=== PATIENT | male | born 1995 | race Caucasian/White ===

== ENCOUNTER 2024-04-20 13:53 | Emergency (ER) | payer OTHER ==
[~2024-04-20] VITALS: Ht 175.3 cm; Wt 82.0 kg
[2024-04-20 13:56] VITALS: O2SAT 96
[2024-04-20 14:03] VITALS: TEMP 36.7; O2SAT 98
[2024-04-20 14:27] LABS: CHLORIDE 101 mEq/L (98-107); POTASSIUM 3.7 mEq/L (3.5-5.1); SODIUM 140 mEq/L (136-145)
[2024-04-20 14:28] LABS: BASOPHILS % 0.8 % (0.0-2.0); DIFFERENTIAL COMMENT 0; HEMATOCRIT. 47.9 % (42.0-52.0); LYMPHOCYTES % 26.5 % (20.0-50.0); MEAN CORPUSCULAR HGB CONC 35.4 g/dL (31.0-37.0); MEAN CORPUSCULAR VOLUME 93.2 fL (80.0-94.0); MEAN PLATELET VOLUME 8.4 fl (7.4-10.4); MONOCYTES % 6.5 % (2.0-8.0); NEUTROPHILS % 65.2 % (40.0-76.0); PLATELET 256 x1000/uL (130-400); RED BLOOD CELL COUNT 5.13 mill/uL (4.7-6.1); RED CELL DISTRIBUTION WIDTH 13.2 % (11.6-14.6); WHITE BLOOD COUNT 7.5 x1000/uL (4.5-11.0)
[2024-04-20 14:29] LABS: CALCIUM 9.7 mg/dL (8.7-10.4); CARBON DIOXIDE 32 mEq/L (21-32)
[2024-04-20 14:30] LABS: CLARITY URINE CLEAR (CLEAR); COLOR URINE YELLOW (YELLOW); GLUCOSE URINE NEGATIVE (NEGATIVE); KETONES URINE NEGATIVE (NEGATIVE); LEUKOCYTE ESTERASE URINE NEGATIVE (NEGATIVE); NITRITE URINE NEGATIVE (NEGATIVE); OCCULT BLOOD URINE NEGATIVE (NEGATIVE); PH URINE 6.5 (4.5-8.0); PROTEIN URINE NEGATIVE (NEGATIVE); SPECIFIC GRAVITY URINE 1.021 (1.005-1.030); UROBILINOGEN URINE 0.2 E.U./dL (0.2-1.0)
[2024-04-20 14:34] LABS: GLUCOSE 97 mg/dL (70-105); UREA NITROGEN BLOOD 13 mg/dL (9-23)
[2024-04-20 15:10] LABS: ALANINE AMINOTRANSFERASE 20 IU/L (10-49); ALBUMIN 4.6 g/dL (3.2-4.8); ASPARTATE AMINOTRANSFERASE 20 IU/L (<34); BILIRUBIN DIRECT 0.2 mg/dL (<=3.0); BILIRUBIN TOTAL 0.9 mg/dL (0.1-1.0); PROTEIN TOTAL 7.5 g/dL (6.0-8.3)
[2024-04-20 15:17] VITALS: BP 123/67; PULSE 78; RESP 16
[2024-04-20] MEDS: KETOROLAC 30MG/ML VIAL IM NR (15:17)
== END 2024-04-20 17:03 | disposition home or self-care (01) ==
LOC: ER 13:53
DX: R10.13 Epigastric pain (principal); Z98.890 Other specified postprocedural states
CPT/HCPCS: 99285; 76705; 80076; 80048; 81003; 83690; 85025; 36415; 96372; J1885